=== PATIENT | female | born 1965 | race American Indian/Alaskan Native ===

== ENCOUNTER 2016-09-26 21:45 | Emergency (ER) | payer BC, OTHER ==
[2016-09-26 21:49] VITALS: BP 147/94
[2016-09-26] MEDS ORDERED: LIDOCAINE 2% PO ONE ×3 (22:07)
[2016-09-26] MEDS ORDERED: DIPHENHYDRAMINE PO ONE ×3 (22:07)
[2016-09-26] MEDS ORDERED: NYSTATIN PO ONE ×3 (22:07)
[2016-09-26] MEDS ORDERED: Lidocaine 2% Viscous Solution 15 ML Cup ONE (22:09)
[2016-09-26] MEDS ORDERED: diphenhydrAMINE 12.5 MG/5 ML Liquid 5 ML UD Cup ONE (22:09)
--- NOTE | 2016-09-26 22:13 | EDM.PDOC ---
ED HPI ENT - General Chief Complaint: ENT Problem Stated Complaint: bumps on tounge Time Seen by Provider: 09/26/16 22:02 Source of Information: Reports: Patient History Limitations: Reports: No limitations - History of Present Illness INITIAL COMMENTS - FREE TEXT/NARRATIVE: in with c/o dry irritated mouth with "white patches" x 2-3 days per pt, no fever or chills, no cp or sob, no ear,nose sx, no neck/back pain or stiffness Severity: mild Location: Reports: mouth Quality: Reports: Burning Improves with: Reports: None Worsens with: Reports: None Associated Symptoms: Denies: cough, fever/chills, loss of appetite, nausea/ vomiting, rash 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) Other OB/BYN History: tubal Psychiatric History: Reports: Anxiety - Infectious Disease History Infectious Disease History: Reports: Chicken pox, Measles, Mumps - Past Surgical History HEENT Surgical History: Reports: Oral surgery Other HEENT Surgeries/Procedures: wisdom teeth removal Social & Family History - Family History Cardiac: Reports: CAD, High cholesterol, Hypertension, [place] - Tobacco Use Smoking Status *Q: Current Every Day Smoker Years of Tobacco use: 20 Packs/Tins Daily: 1 Second Hand Smoke Exposure: No - Caffeine Use Caffeine Use: Reports: Soda - Alcohol Use Days Per Week of Alcohol Use: 0 - Recreational Drug Use Recreational Drug Use: No - Living Situation & Occupation Living situation: Reports: with family Occupation: employed ED ROS ENT - Review of Systems Review Of Systems: See Below Constitutional: Reports: no symptoms. Denies: fever, chills HEENT: Denies: Ear pain Respiratory: Reports: no symptoms Cardiovascular: Reports: No symptoms Endocrine: Reports: no symptoms GI/Abdominal: Reports: No symptoms : Reports: no symptoms Musculoskeletal: Reports: no symptoms Skin: Reports: no symptoms. Denies: rash Neurological: Reports: no symptoms Psychiatric: Reports: No symptoms Hematologic/Lymphatic: Reports: no symptoms ED EXAM, ENT - Physical Exam Exam: See Below Exam Limited By: No limitations General Appearance: alert, WD/WN, no apparent distress Ears: normal external exam, normal canal, hearing grossly normal, normal TMs Nose: normal inspection, normal mucousa Mouth/Throat: Normal gums, Normal lips, Other (irritation with yeast). No: Normal inspection Head: atraumatic, normocephalic Neck: normal inspection, supple, non-tender, full range of motion Respiratory/Chest: no respiratory distress, lungs clear, normal breath sounds Cardiovascular: normal peripheral pulses, regular rate, rhythm, no murmur GI/Abdominal: soft, non tender Back: normal inspection, full range of motion Extremities: normal inspection, normal range of motion Neurological: alert, oriented, normal cognition, normal gait, no motor/sensory deficits Psychiatric: normal affect, normal mood Skin: Warm, Dry, Intact, Normal color, No rash Course - Vital Signs Last Recorded V/S: Last Vital Signs Temp 37.0 C 09/26/16 21:45 Pulse 80 09/26/16 21:45 Resp 18 09/26/16 21:45 BP 147/94 H 09/26/16 21:45 Pulse Ox 95 09/26/16 21:45 - Orders/Labs/Meds Orders: Active Orders 24 hr Category Date Time Status Nystatin [Mycostatin] 5 ml Med 09/26/16 22:07 Ordered diphenhydrAMINE [Benadryl] 12.5 mg Lidocaine 2% [Xylocaine 2% Viscous] 5 ml PO ONETIME Medication Orders Nystatin 5 ml/ Diphenhydramine HCl 12.5 mg/ Lidocaine HCl 5 ml 0 ml PO ONETIME ONE Stop: 09/26/16 22:08 Meds: Medications Generic Name Dose Route Start Last Admin Trade Name Freq PRN Reason Stop Dose Admin Nystatin 5 ml/ Diphenhydramine 0 ml 09/26/16 22:07 HCl 12.5 mg/ Lidocaine HCl 5 PO 09/26/16 22:08 ml ONETIME ONE Departure - Departure Time of Disposition: 22:12 Disposition: Home, Self-Care 01 Condition: good Clinical Impression: Stomatitis Instructions: Stomatitis, [id number] Forms: ED Department Discharge Additional Instructions: swish and swallow magic mouth wash 4 x a day for 7 days, do not eat or drink anything x 30 minutes after taking the medication see family doctor this week to ER as needed - Problem List & Annotations (1) Stomatitis SNOMED Code(s): 40794161 Code(s): K12.1 - OTHER FORMS OF STOMATITIS Status: Acute Priority: Medium Current Visit: Yes Onset Date: ~09/26/16 - Problem List Review Problem List Initiated/Reviewed/Updated: Yes - My Orders Last 24 Hours: My Active Orders 09/26/16 22:07 Nystatin [Mycostatin] 5 ml diphenhydrAMINE [Benadryl] 12.5 mg Lidocaine 2% [ Xylocaine 2% Viscous] 5 ml PO ONETIME - Assessment/Plan Last 24 Hours: My Active Orders 09/26/16 22:07 Nystatin [Mycostatin] 5 ml diphenhydrAMINE [Benadryl] 12.5 mg Lidocaine 2% [ Xylocaine 2% Viscous] 5 ml PO ONETIME
[2016-09-26] MEDS ORDERED: Nystatin Susp 100,000 Unit/ML 5 ML UD Cup ONE (22:23)
== END 2016-09-26 22:40 | disposition home or self-care (01) ==
LOC: CC.ED 21:45
DX: K12.1 Other forms of stomatitis (principal); F41.9 Anxiety disorder, unspecified; F17.210 Nicotine dependence, cigarettes, uncomplicated; Z98.890 Other specified postprocedural states
CPT/HCPCS: 99283; A9270

== ENCOUNTER 2017-02-05 23:02 | Emergency (ER) | payer OTHER ==
[2017-02-05 23:08] VITALS: BP 136/88
[2017-02-05] MEDS ORDERED: Tetracaine 0.5% 2 ML Bottle EYELF ONE (23:18)
--- NOTE | 2017-02-05 23:24 | EDM.PDOC ---
ED HPI GENERAL MEDICAL PROBLEM - General Chief Complaint: Eye Problems Stated Complaint: left eye injury Time Seen by Provider: 02/05/17 23:21 Source of Information: Reports: Patient - History of Present Illness INITIAL COMMENTS - FREE TEXT/NARRATIVE: Scratched her eye with a potted plant Onset: Sudden Duration: Minutes: Quality: Reports: Dull, Sharp Severity: Moderate Improves with: Reports: None Worsens with: Reports: None Left Eye Pain Score (Numeric/FACES): 4 - Related Data Allergies Allergy/AdvReac Type Severity Reaction Status Date / Time No Known Allergies Allergy Verified 02/05/17 23:03 Home Meds: Home Meds . 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) Other OB/BYN History: tubal Psychiatric History: Reports: Anxiety - Infectious Disease History Infectious Disease History: Reports: Chicken Pox, Measles, Mumps - Past Surgical History HEENT Surgical History: Reports: Oral Surgery Female Surgical History: Reports: Other (See Below) Social & Family History - Family History Cardiac: Reports: CAD, High Cholesterol, Hypertension, [place] - Tobacco Use Smoking Status *Q: Current Every Day Smoker Years of Tobacco use: 25 Packs/Tins Daily: 0.5 Second Hand Smoke Exposure: No - Caffeine Use Caffeine Use: Reports: Soda - Alcohol Use Days Per Week of Alcohol Use: 0 - Recreational Drug Use Recreational Drug Use: Yes - Living Situation & Occupation Living situation: Reports: with Family Occupation: Employed ED ROS GENERAL - Review of Systems Review Of Systems: ROS reveals no pertinent complaints other than HPI. ED EXAM GENERAL W FULL EYE - Physical Exam Exam: See Below Text/Narrative:: abrasion noted on cornea General Appearance: Alert, WD/WN Cornea Exam: Left: Corneal Abrasion Ears: Normal External Exam Nose: Normal Inspection Throat/Mouth: Normal Inspection Head: Atraumatic Respiratory/Chest: No Respiratory Distress Cardiovascular: Normal Peripheral Pulses Course - Vital Signs Last Recorded V/S: Last Vital Signs Temp 98.1 F 02/05/17 23:04 Pulse 63 02/05/17 23:04 Resp 16 02/05/17 23:04 BP 136/88 02/05/17 23:04 Pulse Ox 95 02/05/17 23:04 Departure - Departure Time of Disposition: 23:27 Disposition: Home, Self-Care 01 Condition: Good Clinical Impression: Corneal abrasion - Discharge Information Referrals: Provider,Unknown [Primary Care Provider] - Forms: ED Department Discharge Additional Instructions: 2 drops to left eye 5 times daily until healed
[2017-02-05] MEDS ORDERED: Dexamethasone/Tobramycin 0.1-0.3% Ophth Susp 2.5 ML Bottle EYELF SCH (23:30)
== END 2017-02-05 23:32 | disposition home or self-care (01) ==
LOC: CC.ED 23:02
DX: S05.02XA Injury of conjunctiva and corneal abrasion without foreign body, left eye, initial encounter (principal); F17.210 Nicotine dependence, cigarettes, uncomplicated; W60.XXXA Contact with nonvenomous plant thorns and spines and sharp leaves, initial encounter
CPT/HCPCS: 99282

== ENCOUNTER 2017-04-23 13:45 | Emergency (ER) | payer OTHER ==
[2017-04-23] MEDS ORDERED: cefTRIAXone 1 GM Vial IM ONE (14:05)
[2017-04-23] MEDS ORDERED: Lidocaine 1% 20 ML MDV INJECT ONE (14:10)
--- NOTE | 2017-04-23 14:10 | EDM.PDOC ---
ED HPI GENERAL MEDICAL PROBLEM - General Chief Complaint: General Stated Complaint: ear pain, drainage, and rash Time Seen by Provider: 04/23/17 13:55 Source of Information: Reports: Patient History Limitations: Reports: No Limitations - History of Present Illness INITIAL COMMENTS - FREE TEXT/NARRATIVE: About three weeks ago patient states was diagnosed with left otitis media and otitis externa and put on ear drops to treat. The next day the rght external ear lobe became inflamed, swollen and painful with yellowish discharge. Patient went back to her provider and was given an injection of rocephin and told to stop the drops. She stated symptoms all resolved until about four days ago when she develop sinus pressure, nasal congestion and drainage. Now complaining of pain in right ear with inflamed rash on right ear lobe draining yellowish clear fluid, frontal headache and swollen lymph nodes on both sides of neck, right more than left. Onset: Gradual Onset Date: 04/19/17 Onset Time: 12:00 Duration: Hour(s):, Getting Worse Location: Reports: Head, Face (right ear) Quality: Reports: Ache, Throbbing Severity: Moderate Improves with: Reports: None Worsens with: Reports: None Associated Symptoms: Reports: Cough (occasional cough). Denies: Chest Pain Bilateral Ear Pain Score (Numeric/FACES): 6 - Related Data Allergies Allergy/AdvReac Type Severity Reaction Status Date / Time No Known Allergies Allergy Verified 04/23/17 13:47 Home Meds: Home Meds . 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) Other OB/BYN History: tubal Psychiatric History: Reports: Anxiety - Infectious Disease History Infectious Disease History: Reports: Chicken Pox, Measles, Mumps - Past Surgical History HEENT Surgical History: Reports: Oral Surgery Female Surgical History: Reports: Other (See Below) Social & Family History - Family History Family Medical History: Noncontributory Cardiac: Reports: CAD, High Cholesterol, Hypertension, [place] - Tobacco Use Smoking Status *Q: Current Every Day Smoker Years of Tobacco use: 25 Packs/Tins Daily: 0.5 Second Hand Smoke Exposure: No - Caffeine Use Caffeine Use: Reports: Soda - Alcohol Use Days Per Week of Alcohol Use: 0 - Recreational Drug Use Recreational Drug Use: Yes - Living Situation & Occupation Living situation: Reports: with Family Occupation: Employed ED ROS GENERAL - Review of Systems Review Of Systems: See Below Constitutional: Denies: Fever, Chills, Diaphoresis HEENT: Reports: Ear Discharge, Ear Pain, Rhinitis, Sinus Problem Respiratory: Reports: No Symptoms Cardiovascular: Reports: No Symptoms Endocrine: Reports: No Symptoms GI/Abdominal: Reports: No Symptoms : Reports: No Symptoms Musculoskeletal: Reports: No Symptoms Skin: Reports: No Symptoms Neurological: Reports: No Symptoms Psychiatric: Reports: No Symptoms Hematologic/Lymphatic: Reports: No Symptoms Immunologic: Reports: No Symptoms ED EXAM, GENERAL - Physical Exam Exam: See Below Exam Limited By: No Limitations General Appearance: Alert, WD/WN, No Apparent Distress Eye Exam: Bilateral Eye: EOMI, PERRL Ears: Hearing Grossly Normal Ear Exam: Right Ear: Discharge, Erythema, Swelling, Tenderness, TM Dull, Other ( Right TM obscured by purulent cheesy apearing discharge in the ear canal, right ear lobe red, inflamed and swollen with dry yellowish to clear discharge and excoriations. No pussy discharge. noted. Mild tender deep anterior and postauricular LAD noted right and to a lesse degree the left. Rght auricle vert tender with palpation. ), Left Ear: Auricle Normal, Canal Normal, TM normal Nose: Nasal Swelling, Nasal Drainage, Clear Rhinorrhea (nasal mucous membranes red boggy and swollen with clear rhinorrhea, tender with palpation over maxiallary and frontal sinuses) Throat/Mouth: Normal Inspection, Normal Lips, Normal Teeth, Normal Gums, Normal Oropharynx, Normal Voice, No Airway Compromise Head: Atraumatic, Normocephalic Neck: Normal Inspection, Supple (mild tender LAD as noted above) Respiratory/Chest: No Respiratory Distress, Lungs Clear, Normal Breath Sounds, No Accessory Muscle Use, Chest Non-Tender Cardiovascular: Normal Peripheral Pulses, Regular Rate, Rhythm, No Edema, No Gallop, No JVD, No Murmur, No Rub Peripheral Pulses: 3+: Radial (L), Radial (R) GI/Abdominal: Normal Bowel Sounds, Soft, Non-Tender (Female) Exam: Deferred Rectal (Female) Exam: Deferred Back Exam: Normal Inspection Extremities: Normal Inspection, Normal Range of Motion, No Pedal Edema Neurological: Oriented, CN II-XII Intact, Normal Cognition, Normal Gait Psychiatric: Normal Affect, Normal Mood Skin Exam: Warm, Dry, Intact, Normal Color, No Rash Course - Vital Signs Last Recorded V/S: Last Vital Signs Temp 37.2 C 04/23/17 13:49 Pulse 61 04/23/17 13:49 Resp 16 04/23/17 13:49 BP 141/102 H 04/23/17 13:49 Pulse Ox 95 04/23/17 13:49 - Re-Assessments/Exams Free Text/Narrative Re-Assessment/Exam: 04/23/17 14:23 Patient evaluated and diagnosed with sinusitis and recurrent ROM and right otitis externa. She will be given a shot of rocephin and a prescription for oral ceftin to fill tomorrow. No salve or ointment will be used on the left external ear as the last ointment seemed to make it worse. She was advised it may be recurrent due to incomplete prior treatment as she only had one dose of rocephin and no oral antibiotics. It sounds like it improved but its possible it may not have resolved. I advised her to follow up with her regular doctor this week for further evaluation and treatment. The appearance of right right TM raised the question if there may be a choleastoma involved. She may need an ENT referral if this does not clear. Patient was advised of the possible differential diagnosis and voiced understanding. Departure - Departure Time of Disposition: 14:29 Disposition: Home, Self-Care 01 Condition: Good Clinical Impression: Otitis media Qualifiers: Otitis media type: suppurative Chronicity: acute Laterality: right Recurrence: recurrent Spontaneous tympanic membrane rupture: without spontaneous rupture Qualified Code(s): H66.004 - Acute suppurative otitis media without spontaneous rupture of ear drum, recurrent, right ear Otitis externa of right ear Qualifiers: Otitis externa type: unspecified type Chronicity: acute Qualified Code(s): H60.501 - Unspecified acute noninfective otitis externa, right ear Sinusitis, acute Qualifiers: Sinusitis location: pansinusitis Recurrence: not specified as recurrent Qualified Code(s): J01.40 - Acute pansinusitis, unspecified - Discharge Information Instructions: Otitis Media, Adult, [id number], Otitis Externa Additional Instructions: Fill your antibiotic prescription tomorrow and take as directed. This will cover for ear infection and sinusitis. Either eat yogurt once daily or take a probiotic supplement to help prevent antibiotic related diarrhea. Follow up with your regular doctor this week to make sure it is healing. You may need a referral to ENT if this problem persists or does not resolve
[2017-04-23 14:23] VITALS: BP 129/85
== END 2017-04-23 14:42 | disposition home or self-care (01) ==
LOC: CC.ED 13:45
DX: H66.004 Acute suppurative otitis media without spontaneous rupture of ear drum, recurrent, right ear (principal); H60.501 Unspecified acute noninfective otitis externa, right ear; J01.40 Acute pansinusitis, unspecified; F41.9 Anxiety disorder, unspecified; F17.210 Nicotine dependence, cigarettes, uncomplicated
CPT/HCPCS: 96372; 99282; J0696

== ENCOUNTER 2018-05-06 00:38 | Emergency (ER) | payer OTHER ==
--- NOTE | 2018-05-06 01:23 | EDM.PDOC ---
ED HPI GENERAL MEDICAL PROBLEM - General Chief Complaint: General Stated Complaint: ANXIETY/HEAVINESS IN CHEST Time Seen by Provider: 05/06/18 01:00 Source of Information: Reports: Patient History Limitations: Reports: No Limitations - History of Present Illness INITIAL COMMENTS - FREE TEXT/NARRATIVE: Patient presents to ER with complaints of chest heaviness that radiated to her right shoulder. States started noting this several hours ago while watching TV. Admits to mild shortness of breath with this but notes did get more anxious because of this and seemed to make it worse. Initially, discomfort was at an 8, now a 4. No nausea or diaphoresis. Had discomfort like this several years ago, had complete cardiac work up and stress test which were all negative. Questioned also if it could have been reflux but denies a burning sensation or known reflux in the past. When lying down for the night, seemed to continue and "then got more panicky about it". Onset: Today, Gradual Duration: Hour(s):, Improving Location: Reports: Chest Quality: Reports: Pressure Severity: Moderate Associated Symptoms: Reports: Chest Pain, Shortness of Breath. Denies: Diaphoresis, Fever/Chills, Loss of Appetite, Nausea/Vomiting, Syncope, Weakness Generalized Pain Score (Numeric/FACES): 4 - Related Data Allergies Allergy/AdvReac Type Severity Reaction Status Date / Time No Known Allergies Allergy Verified 05/06/18 00:40 Home Meds: Home Meds . 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 Psychiatric History: Reports: Anxiety - Infectious Disease History Infectious Disease History: Reports: Chicken Pox, Measles, Mumps - Past Surgical History HEENT Surgical History: Reports: Oral Surgery Female Surgical History: Reports: Other (See Below) Social & Family History - Family History Family Medical History: Noncontributory Cardiac: Reports: CAD, High Cholesterol, Hypertension, [place] - Tobacco Use Smoking Status *Q: Never Smoker - Caffeine Use Caffeine Use: Reports: Soda - Living Situation & Occupation Living situation: Reports: with Family Occupation: Employed ED ROS GENERAL - Review of Systems Review Of Systems: See Below Constitutional: Denies: Fever, Chills, Malaise, Weakness, Decreased Appetite HEENT: Denies: Ear Pain, Rhinitis, Sinus Problem, Throat Pain Respiratory: Reports: Shortness of Breath. Denies: Cough Cardiovascular: Reports: Chest Pain. Denies: Edema, Lightheadedness Endocrine: Denies: Fatigue GI/Abdominal: Denies: Abdominal Pain, Nausea, Vomiting : Reports: No Symptoms Musculoskeletal: Reports: No Symptoms Skin: Reports: No Symptoms Neurological: Reports: No Symptoms ED EXAM, GENERAL - Physical Exam Exam: See Below Exam Limited By: No Limitations General Appearance: Alert, WD/WN, No Apparent Distress Ears: Normal External Exam, Normal TMs Nose: Normal Inspection, Normal Mucosa, No Blood Throat/Mouth: Normal Inspection, Normal Oropharynx Head: Normocephalic Neck: Normal Inspection, Supple, Non-Tender Respiratory/Chest: No Respiratory Distress, Lungs Clear, Normal Breath Sounds Cardiovascular: Regular Rate, Rhythm GI/Abdominal: Normal Bowel Sounds, Soft, Non-Tender Extremities: Normal Inspection. No: Pedal Edema Neurological: Alert, Oriented Skin Exam: Warm, Dry EKG INTERPRETATION Rhythm: NSR Course - Vital Signs Last Recorded V/S: Last Vital Signs Temp 98.3 F 05/06/18 00:51 Pulse 64 05/06/18 00:51 Resp 18 05/06/18 00:51 BP 146/80 H 05/06/18 00:51 Pulse Ox 98 05/06/18 00:51 - Orders/Labs/Meds Orders: Active Orders 24 hr Category Date Time Status Chest 2V [CR] Routine Exams 05/06/18 01:06 Taken Labs: Laboratory Tests 05/06/18 05/06/18 Range/Units 01:10 01:10 WBC 8.0 (5.0-10.0) 10^3/uL RBC 4.35 (4.00-5.50) 10^6/uL Hgb 13.2 (12.0-16.0) g/dL Hct 39.8 (37.0-47.0) % MCV 91.5 (82.0-94.0) fL MCH 30.3 (27.0-32.0) pg MCHC 33.2 (33.0-38.0) g/dL RDW Coeff of Farideh 13.5 (11.0-15.0) % Plt Count 234 (150-400) 10^3/uL Neut % (Auto) 52.7 (35-85) % Lymph % (Auto) 35.7 (10-55) % [place] % (Auto) 8.2 (0-16) % Eos % (Auto) 3.0 (0-5) % Baso % (Auto) 0.4 (0-3) % Neut # (Auto) 4.20 (1.80-7.00) 10^3/uL Lymph # (Auto) 2.84 (1.00-4.80) 10^3/uL [place] # (Auto) 0.65 (0.00-0.80) 10^3/uL Eos # (Auto) 0.24 (0.00-0.45) 10^3/uL Baso # (Auto) 0.03 10^3/uL Sodium 139 (136-145) mEq/L Potassium 3.5 (3.5-5.0) mEq/L Chloride 106 (98-106) mEq/L Carbon Dioxide 26 (21-32) mmol/L BUN 12 (7-18) mg/dL Creatinine 0.8 (0.6-1.0) mg/dL Est Cr Clr Drug Dosing 70.88 mL/min Estimated GFR (MDRD) > 60 (>=60) mL/min Glucose 98 (75-99) mg/dL Calcium 8.7 (8.4-10.1) mg/dL Lactate Dehydrogenase 150 (100-190) U/L Creatine Kinase 78 (21-215) U/L Troponin I < 0.017 (0.00-0.06) ng/mL Amylase 35 (25-115) U/L - Re-Assessments/Exams Free Text/Narrative Re-Assessment/Exam: 05/06/18 01:37 Lab tests are all negative. Chest xray is clear. Departure - Departure Time of Disposition: 01:37 Disposition: Home, Self-Care 01 Condition: Good Clinical Impression: Atypical chest pain - Discharge Information *PRESCRIPTION DRUG MONITORING PROGRAM REVIEWED*: Not Applicable *COPY OF PRESCRIPTION DRUG MONITORING REPORT IN PATIENT YAMILET: Not Applicable Forms: ED Department Discharge Additional Instructions: 1. Rest 2. Push fluids 3. Antacids as needed 4. Follow up if continue to have chest discomfort as may need further cardiac work up if persists. 5. Call with any questions - My Orders Last 24 Hours: My Active Orders 05/06/18 01:06 Chest 2V [CR] Routine - Assessment/Plan Last 24 Hours: My Active Orders 05/06/18 01:06 Chest 2V [CR] Routine
[2018-05-06 01:33] LABS: CHLORIDE,CL 106 mEq/L (98-106); SODIUM,NA 139 mEq/L (136-145)
[2018-05-06 02:33] VITALS: BP 120/76
== END 2018-05-06 01:48 | disposition home or self-care (01) ==
LOC: CC.ED 00:38
DX: R07.89 Other chest pain (principal)
CPT/HCPCS: 36415; 71046; 80048; 82150; 82550; 83615; 84484; 85025; 93005; 99285

== ENCOUNTER 2019-06-03 01:08 | Emergency (ER) | payer BC, OTHER ==
[2019-06-03 01:11] VITALS: BP 145/84; PULSE 70
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
== END 2019-06-03 01:49 | disposition home or self-care (01) ==
LOC: CC.ED 01:08
DX: L50.9 Urticaria, unspecified (principal); F17.210 Nicotine dependence, cigarettes, uncomplicated
CPT/HCPCS: 99283

== ENCOUNTER 2019-07-24 22:45 | Emergency (ER) | payer BC, OTHER ==
[2019-07-24 23:27] LABS: CHLORIDE,CL 109 mEq/L (98-106); SODIUM,NA 146 mEq/L (136-145)
[2019-07-24] MEDS ORDERED: Iopamidol 755 Mg/ML 100 ML Bottle IVPUSH ONE (23:33)
[2019-07-25 00:09] VITALS: BP 142/67; PULSE 64
--- NOTE | 2019-07-25 01:50 | EDM.PDOC ---
ED HPI GENERAL MEDICAL PROBLEM - General Chief Complaint: Chest Pain Stated Complaint: chest pain Time Seen by Provider: 07/24/19 23:00 Source of Information: Reports: Patient History Limitations: Reports: No Limitations - History of Present Illness INITIAL COMMENTS - FREE TEXT/NARRATIVE: Carmelita is a 53 yr old female who presents to the ED via [facility] with complaints of chest pain that radiates to her left shoulder. She states she was cleaning tonight and moving boxes when symtpoms started a few hours ago. States she did go try and lie down to see if she got any relief and felt it made it worse. She admit when she sat back up it was a little better, but then her anxiety kicked in and she became SOB and felt she was having a full anxiety attack. EMS admit she was anxious and her blood pressure was elevated en route. Prior to arrival she calmed down and on arrival blood pressure came down. She admits to chronic tobacco use. States she does have family history of cardiac disease. States she has had a cardiolite before, which was normal. She admits her pain has mostly subsided now. Denies any shortness of breath. States she has been feeling well otherwise. No recent cold symptoms. Does state she does think she gets indigestion from time to time though. - Related Data Allergies Allergy/AdvReac Type Severity Reaction Status Date / Time No Known Allergies Allergy Verified 07/24/19 22:52 Home Meds: Home Meds . 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 Musculoskeletal History: Reports: None Neurological History: Reports: None Psychiatric History: Reports: Anxiety Endocrine/Metabolic History: Reports: None Hematologic History: Reports: None Immunologic History: Reports: None Oncologic (Cancer) History: Reports: None Dermatologic History: Reports: None - Infectious Disease History Infectious Disease History: Reports: Chicken Pox, Measles, Mumps - Past Surgical History Head Surgeries/Procedures: Reports: None HEENT Surgical History: Reports: Oral Surgery Female Surgical History: Reports: Other (See Below) Social & Family History - Family History Family Medical History: Noncontributory Cardiac: Reports: CAD, High Cholesterol, Hypertension, [place] - Tobacco Use Smoking Status *Q: Current Every Day Smoker Years of Tobacco use: 40 Packs/Tins Daily: 0.5 - Caffeine Use Caffeine Use: Reports: None - Living Situation & Occupation Living situation: Reports: with Family Occupation: Employed ED ROS GENERAL - Review of Systems Review Of Systems: See Below Constitutional: Denies: Fever, Chills, Weakness, Decreased Appetite HEENT: Reports: No Symptoms Respiratory: Denies: Shortness of Breath, Wheezing, Cough Cardiovascular: Reports: Chest Pain. Denies: Blood Pressure Problem, Dyspnea on Exertion, Lightheadedness, Palpitations GI/Abdominal: Reports: No Symptoms : Reports: No Symptoms Musculoskeletal: Reports: No Symptoms Skin: Reports: No Symptoms Neurological: Reports: No Symptoms Psychiatric: Reports: Anxiety ED EXAM, GENERAL - Physical Exam Exam: See Below Exam Limited By: No Limitations General Appearance: Alert, WD/WN, No Apparent Distress Eye Exam: Bilateral Eye: Normal Inspection Ears: Normal External Exam, Normal Canal, Hearing Grossly Normal, Normal TMs Nose: Normal Inspection, Normal Mucosa, No Blood Throat/Mouth: Normal Inspection, Normal Lips, Normal Teeth, Normal Gums, Normal Oropharynx, Normal Voice, No Airway Compromise Head: Atraumatic, Normocephalic Neck: Normal Inspection, Supple, Non-Tender, Full Range of Motion Respiratory/Chest: No Respiratory Distress, Lungs Clear, Normal Breath Sounds, No Accessory Muscle Use Cardiovascular: Normal Peripheral Pulses, Regular Rate, Rhythm, No Edema, No Murmur GI/Abdominal: Normal Bowel Sounds, Soft, No Organomegaly, No Distention, Tender (mild epigastric tenderness) Extremities: Normal Inspection, No Pedal Edema Neurological: Alert, Oriented, Normal Cognition, No Motor/Sensory Deficits Psychiatric: Normal Affect, Normal Mood Skin Exam: Warm, Dry, Intact, Normal Color, No Rash EKG INTERPRETATION EKG Date: 07/24/19 Rhythm: NSR Rate (Beats/Min): 59 Course - Vital Signs Last Recorded V/S: Last Vital Signs Temp 98.8 F 07/24/19 22:52 Pulse 64 07/25/19 00:08 Resp 18 07/24/19 22:52 BP 142/67 H 07/25/19 00:08 Pulse Ox 98 07/24/19 22:52 - Orders/Labs/Meds Orders: Active Orders 24 hr Category Date Time Status Chest 2V [CR] Stat Exams 07/24/19 22:47 Taken Labs: Laboratory Tests 07/24/19 07/24/19 07/24/19 Range/Units 23:00 23:00 23:00 WBC 8.5 (5.0-10.0) 10^3/uL RBC 4.34 (4.00-5.50) 10^6/uL Hgb 13.2 (12.0-16.0) g/dL Hct 40.2 (37.0-47.0) % MCV 92.6 (82.0-94.0) fL MCH 30.4 (27.0-32.0) pg MCHC 32.8 L (33.0-38.0) g/dL RDW Coeff of Farideh 13.6 (11.0-15.0) % Plt Count 192 (150-400) 10^3/uL Neut % (Auto) 58.1 (35-85) % Lymph % (Auto) 26.6 (10-55) % [place] % (Auto) 9.1 (0-16) % Eos % (Auto) 5.8 H (0-5) % Baso % (Auto) 0.4 (0-3) % Neut # (Auto) 4.92 (1.80-7.00) 10^3/uL Lymph # (Auto) 2.25 (1.00-4.80) 10^3/uL [place] # (Auto) 0.77 (0.00-0.80) 10^3/uL Eos # (Auto) 0.49 H (0.00-0.45) 10^3/uL Baso # (Auto) 0.03 10^3/uL PT 9.7 (9.7-12.3) SEC INR 0.94 (0.92-1.18) APTT 27.1 (23.2-32.3) SEC D-Dimer, Quantitative 0.73 H (0.00-0.50) Sodium 146 H (136-145) mEq/L Potassium 3.7 (3.5-5.0) mEq/L Chloride 109 H (98-106) mEq/L Carbon Dioxide 25 (21-32) mmol/L BUN 11 (7-18) mg/dL Creatinine 0.8 (0.6-1.0) mg/dL Est Cr Clr Drug Dosing 71.50 mL/min Estimated GFR (MDRD) > 60 (>=60) mL/min Glucose 99 (75-99) mg/dL Calcium 8.9 (8.4-10.1) mg/dL Total Bilirubin 0.2 (0.0-1.0) mg/dL AST 12 L (15-37) U/L ALT 21 (12-78) U/L Alkaline Phosphatase 75 (46-116) U/L Lactate Dehydrogenase 176 (100-190) U/L Creatine Kinase 76 (21-215) U/L Troponin I < 0.017 (0.00-0.06) ng/mL Total Protein 6.6 (6.4-8.2) g/dL Albumin 3.4 (3.4-5.0) g/dL Lipase 121 (73-393) U/L Meds: Medications Discontinued Medications Generic Name Dose Route Start Last Admin Trade Name Freq PRN Reason Stop Dose Admin Iopamidol 100 ml 07/24/19 23:33 Isovue-370 (76%) IVPUSH 07/24/19 23:34 ONETIME ONE Departure - Departure Time of Disposition: 00:55 Disposition: Home, Self-Care 01 Clinical Impression: Elevated d-dimer, Nonspecific chest pain Instructions: Nonspecific Chest Pain, [id number], D-Dimer Test Referrals: PCP,None [Primary Care Provider] - Forms: ED Department Discharge Additional Instructions: 1) discussed elevated d-dimer and further work up to rule out PE. With declining test, advise closely watching for any signs of shortness of breath, worsening chest pain. If any symptoms worsen, return or any new onset of symptoms... please return to emergency department 2) May try TUMS, Zantac or Prilosec as well if possible indigestion. 3) If any concerns or questions, may call [phone] as well. Sepsis Event Note - Evaluation Sepsis Screening Result: No Definite Risk - Focused Exam Vital Signs: Vital Signs Temp Pulse Resp BP Pulse Ox 07/25/19 00:08 64 142/67 H 07/24/19 22:52 98.8 F 62 18 149/68 H 98 Date Exam was Performed: 07/25/19 Time Exam was Performed: 01:44 - Problem List & Annotations (1) Nonspecific chest pain SNOMED Code(s): 92679984 Code(s): R07.9 - CHEST PAIN, UNSPECIFIED Status: Acute (2) Elevated d-dimer SNOMED Code(s): 687920745 Code(s): R79.89 - OTHER SPECIFIED ABNORMAL FINDINGS OF BLOOD CHEMISTRY Status: Acute - My Orders Last 24 Hours: My Active Orders 07/24/19 22:47 Chest 2V [CR] Stat - Assessment/Plan Last 24 Hours: My Active Orders 07/24/19 22:47 Chest 2V [CR] Stat Plan: Cardiac enzymes were negative. D-dimer slightly elevated. Patient declined IV with CTA of the chest. I did discuss into detail d-dimer testing and with being elevated ruling out PE. I did discuss the risks involved with PE's to include , which she voiced understanding of and declines further testing. She felt comfortable with normal cardiac enzymes and feels it may have been indigestion. With having some midsternal discomfort she felt it caused her anxiety to increase as well. Patient wished to be discharged and left ambulatory in satisfactory condition. Chest pain significantly improved during her time in the ED.
== END 2019-07-25 00:55 | disposition home or self-care (01) ==
LOC: CC.ED 22:45
DX: R07.9 Chest pain, unspecified (principal); R79.1 Abnormal coagulation profile; F17.210 Nicotine dependence, cigarettes, uncomplicated; I25.10 Atherosclerotic heart disease of native coronary artery without angina pectoris; I10 Essential (primary) hypertension; I25.2 Old myocardial infarction
CPT/HCPCS: 36415; 71046; 80053; 82550; 83615; 83690; 84484; 85025; 85379; 85610; 85730; 93005; 99285-25

== ENCOUNTER 2019-08-25 15:52 | Emergency (ER) | payer BC, OTHER ==
[2019-08-25] MEDS ORDERED: Codeine/Promethazine 10-6.25 MG/5 ML Syrup 5 ML UD Cup PO ONE (15:53)
[2019-08-25 15:55] VITALS: BP 109/75; PULSE 60
[2019-08-25] MEDS ORDERED: Azithromycin 250 MG Tab PO ONE (16:07)
[2019-08-25] MEDS ORDERED: Take Home: Codeine/Promethazine 10-6.25 MG/5 ML Syrup 5 ML, 2 Cup Pack PO ONE (16:09)
--- NOTE | 2019-08-25 16:15 | EDM.PDOC ---
ED HPI GENERAL MEDICAL PROBLEM - General Chief Complaint: Respiratory Problem Stated Complaint: cough Time Seen by Provider: 08/25/19 16:00 Source of Information: Reports: Patient, Family History Limitations: Reports: No Limitations - History of Present Illness INITIAL COMMENTS - FREE TEXT/NARRATIVE: Patient to the emergency department with family complaint of increased cough and congestion with a runny nose and sore ribs for the past couple weeks. The patient also advises she has had a fever and chills off and on she has had a runny nose she denies any ear pain denies any throat pain denies any cardiac chest pain denies any shortness of breath denies any abdominal pain no nausea vomiting no diarrhea no constipation no rash Onset: Gradual Duration: Week(s): (About 2 weeks) Location: Reports: Chest Quality: Reports: Ache Severity: Moderate Improves with: Reports: None Worsens with: Reports: None Associated Symptoms: Reports: Cough, cough w sputum, Fever/Chills. 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 Abdomen Pain Score (Numeric/FACES): 4 - Related Data Allergies Allergy/AdvReac Type Severity Reaction Status Date / Time No Known Allergies Allergy Verified 08/25/19 15:55 Home Meds: Home Meds Azithromycin 500 mg PO DAILY 2 Days #2 tablet 08/25/19 [Rx] Promethazine/Dextromethorphan [Promethazine-Dm Solution] 10 ml PO Q6HR PRN 5 Days #120 syrup 08/25/19 [Rx] predniSONE 40 mg PO DAILY@1200 #1 tablet 08/25/19 [Rx] predniSONE [Prednisone] 50 mg PO DAILY 4 Days #4 tablet 08/25/19 [Rx] Past Medical History HEENT History: Reports: None Cardiovascular History: Reports: None Respiratory History: Reports: None Gastrointestinal History: Reports: GERD Genitourinary History: Reports: None 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 DRIVER History: Reports: 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, Other (See Below) 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 Musculoskeletal History: Reports: None Neurological History: Reports: None Psychiatric History: Reports: Anxiety Endocrine/Metabolic History: Reports: None Hematologic History: Reports: None Immunologic History: Reports: None Oncologic (Cancer) History: Reports: None Dermatologic History: Reports: None - Infectious Disease History Infectious Disease History: Reports: Chicken Pox, Measles, Mumps - Past Surgical History Head Surgeries/Procedures: Reports: None HEENT Surgical History: Reports: Oral Surgery Female Surgical History: Reports: Other (See Below) Social & Family History - Family History Family Medical History: Noncontributory Cardiac: Reports: CAD, High Cholesterol, Hypertension, [place] - Tobacco Use Smoking Status *Q: Current Every Day Smoker Years of Tobacco use: 35 Packs/Tins Daily: 0.5 Used Tobacco, but Quit: No - Caffeine Use Caffeine Use: Reports: Soda - Living Situation & Occupation Living situation: Reports: with Family Occupation: Employed ED ROS GENERAL - Review of Systems Review Of Systems: See Below Constitutional: Reports: Fever, Chills HEENT: Reports: No Symptoms, Rhinitis. Denies: Ear Pain Respiratory: Reports: Pleuritic Chest Pain, Cough, Sputum. Denies: Shortness of Breath, Hemoptysis Cardiovascular: Reports: No Symptoms. Denies: Chest Pain Endocrine: Reports: No Symptoms GI/Abdominal: Reports: No Symptoms. Denies: Abdominal Pain, Nausea, Vomiting : Reports: No Symptoms Musculoskeletal: Reports: No Symptoms. Denies: Neck Pain, Back Pain Skin: Reports: No Symptoms. Denies: Bruising, Rash, Erythema Neurological: Reports: No Symptoms Psychiatric: Reports: No Symptoms ED EXAM, GENERAL - Physical Exam Exam: See Below Exam Limited By: No Limitations General Appearance: Alert, WD/WN, No Apparent Distress Ears: Normal External Exam, Normal Canal, Hearing Grossly Normal, Normal TMs Nose: Nasal Drainage (Purulent drainage with injected nares) Throat/Mouth: Normal Inspection, Normal Lips, Normal Teeth, Normal Oropharynx, Normal Voice, No Airway Compromise Head: Atraumatic, Normocephalic Neck: Normal Inspection, Supple, Non-Tender, Full Range of Motion Respiratory/Chest: No Respiratory Distress, Normal Breath Sounds, Chest Non- Tender, Wheezing (Scattered expiratory wheezing in the bases, the patient is a chronic smoker). No: Lungs Clear Cardiovascular: Normal Peripheral Pulses, Regular Rate, Rhythm, No Murmur Peripheral Pulses: 2+: Radial (L) GI/Abdominal: Soft, Non-Tender Back Exam: Normal Inspection, Full Range of Motion Extremities: Normal Inspection, Normal Range of Motion, Non-Tender, No Pedal Edema, Normal Capillary Refill. No: Jovan's Sign Neurological: Alert, Oriented, Normal Cognition, Normal Gait, No Motor/Sensory Deficits Psychiatric: Normal Affect, Normal Mood Skin Exam: Warm, Dry, Intact, Normal Color, No Rash Course - Vital Signs Text/Narrative:: The patient was evaluated in the emergency department I suspect that the patient has a bronchitis and as this is been going on for an extended period of time I suspect there is a bacterial component, therefore the patient will be started on Zithromax 500 mg once a day for 3 days she will also be given prednisone 50 mg once a day for 5 days and promethazine DM cough syrup 2 teaspoons every 6 hours as needed for cough she is advised to increase her fluids follow-up with family doctor this week and return to emergency department sooner if worsening problems Last Recorded V/S: Last Vital Signs Temp 37.0 C 08/25/19 15:52 Pulse 60 08/25/19 15:52 Resp 18 08/25/19 15:52 BP 109/75 08/25/19 15:52 Pulse Ox 97 08/25/19 15:52 - Orders/Labs/Meds Orders: Active Orders 24 hr Category Date Time Status predniSONE Med 08/25/19 16:30 Active 40 mg PO STAT Medication Orders Prednisone (Prednisone) 40 mg PO STAT JOSHUA Last Admin: 08/25/19 16:29 Dose: 40 mg Meds: Medications Generic Name Dose Route Start Last Admin Trade Name Freq PRN Reason Stop Dose Admin Prednisone 40 mg 08/25/19 16:30 08/25/19 16:29 Prednisone PO 40 mg STAT JOSHUA Administration Discontinued Medications Generic Name Dose Route Start Last Admin Trade Name Freq PRN Reason Stop Dose Admin Azithromycin 500 mg 08/25/19 16:07 08/25/19 16:25 Zithromax PO 08/25/19 16:08 500 mg ONETIME ONE Administration Prednisone 40 mg 08/26/19 12:00 Prednisone PO DAILY@1200 JOSHUA Promethazine HCl/Codeine 1 packet 08/25/19 16:09 08/25/19 16:25 Take Home: Codeine/Prometh 10-6.25 Mg, 2 Pack PO 08/25/19 16:10 1 packet ONETIME ONE Administration Departure - Departure Time of Disposition: 16:09 Disposition: Home, Self-Care 01 Condition: Good Clinical Impression: Bronchitis - Discharge Information *PRESCRIPTION DRUG MONITORING PROGRAM REVIEWED*: Not Applicable *COPY OF PRESCRIPTION DRUG MONITORING REPORT IN PATIENT YAMILET: Not Applicable Prescriptions: Promethazine/Dextromethorphan [Promethazine-Dm Solution] 10 ml PO Q6HR PRN 5 Days #120 syrup PRN Reason: Cough Azithromycin 500 mg PO DAILY 2 Days #2 tablet predniSONE 40 mg PO DAILY@1200 #1 tablet predniSONE [Prednisone] 50 mg PO DAILY 4 Days #4 tablet Instructions: Acute Bronchitis, Adult, [id number] Referrals: PCP,None [Primary Care Provider] - Forms: ED Department Discharge Additional Instructions: Rest Increase fluids Zithromax once a day for 3 days Prednisone 50 mg once a day for 4 days Promethazine DM cough syrup 2 teaspoons every 6 hours as needed for cough Follow-up with the family doctor this coming week, call tomorrow for an appointment time Return to the emergency department sooner if worsening problems Sepsis Event Note - Evaluation Sepsis Screening Result: No Definite Risk - Focused Exam Vital Signs: Vital Signs Temp Pulse Resp BP Pulse Ox 08/25/19 15:52 37.0 C 60 18 109/75 97 Date Exam was Performed: 08/25/19 Time Exam was Performed: 16:36 - Problem List & Annotations (1) Bronchitis SNOMED Code(s): 12745694 Code(s): J40 - BRONCHITIS, NOT SPECIFIED ACUTE OR CHRONIC Status: Acute Priority: Medium Current Visit: Yes - Problem List Review Problem List Initiated/Reviewed/Updated: Yes - My Orders Last 24 Hours: My Active Orders 08/25/19 16:30 predniSONE 40 mg PO STAT - Assessment/Plan Last 24 Hours: My Active Orders 08/25/19 16:30 predniSONE 40 mg PO STAT Plan: as above
[2019-08-25] MEDS ORDERED: predniSONE 20 MG Tab PO SCH (16:30)
[2019-08-26] MEDS ORDERED: predniSONE 20 MG Tab PO SCH (12:00)
== END 2019-08-25 16:50 | disposition home or self-care (01) ==
LOC: CC.ED 15:52
DX: J40 Bronchitis, not specified as acute or chronic (principal); F17.210 Nicotine dependence, cigarettes, uncomplicated
CPT/HCPCS: 99283; A9270

== ENCOUNTER 2020-02-28 14:35 | Emergency (ER) | payer BC, OTHER ==
[2020-02-28 14:45] VITALS: BP 132/82; PULSE 97
--- NOTE | 2020-02-28 15:25 | EDM.PDOC ---
ED HPI GENERAL MEDICAL PROBLEM - General Chief Complaint: General Stated Complaint: cough,SOB,CP,bodyaches Time Seen by Provider: 02/28/20 15:12 Source of Information: Reports: Patient History Limitations: Reports: No Limitations - History of Present Illness INITIAL COMMENTS - FREE TEXT/NARRATIVE: This patient is a 54 year old female that presents to the ER. Patient arrives via EMS. Patient reports that last weekend she was exposed to someone who tested positive for COVID. Patient reports that on Monday, 3 days ago she began having headache, congestion, drainage, productive cough, chest congestion. She reports then today she began with fever. She reports that she went to [place] this morning and got a COVID test. Patient reports she did not get results and wont get back today. Patient reports she went home and got anxious and a little more short of breath thinking about having COVID. She reports she called an ambulance due to this reason. The patient reports she stopped smoking about 6 months ago. Onset Date: 02/25/20 Duration: Day(s): (3) Severity: Mild Improves with: Reports: None Worsens with: Reports: None Associated Symptoms: Reports: Cough, cough w sputum, Fever/Chills, Headaches, Shortness of Breath. Denies: Confusion, Chest Pain, Diaphoresis, Loss of Appetite, Malaise, Nausea/Vomiting, Rash, Seizure, Syncope, Weakness Chest Pain Score (Numeric/FACES): 7 - Related Data Allergies Allergy/AdvReac Type Severity Reaction Status Date / Time No Known Allergies Allergy Verified 02/28/20 14:45 Home Meds: Home Meds Albuterol [Proair HFA] 1 puff IH Q4H PRN #1 inhaler 02/28/20 [Rx] Albuterol/Ipratropium [DuoNeb 3.0-0.5 MG/3 ML] 3 ml .XX Q6HR PRN #60 neb 02/28/20 [Rx] Cefdinir 300 mg PO BID 10 Days #20 capsule 02/28/20 [Rx] methylPREDNISolone [Medrol Dose Pack] 4 mg PO ASDIRECTED 5 Days #1 dospk 02/28/20 [Rx] Past Medical History HEENT History: Reports: None Cardiovascular History: Reports: None Respiratory History: Reports: None Gastrointestinal History: Reports: GERD Genitourinary History: Reports: None SR. DIRECTOR PRODUCT MANAGEMENT History: Reports: None, Other (See Below) Other SR. DIRECTOR PRODUCT MANAGEMENT History: tubal Musculoskeletal History: Reports: None Neurological History: Reports: None Psychiatric History: Reports: Anxiety Endocrine/Metabolic History: Reports: None Hematologic History: Reports: None Immunologic History: Reports: None Oncologic (Cancer) History: Reports: None Dermatologic History: Reports: None - Infectious Disease History Infectious Disease History: Reports: None - Past Surgical History Head Surgeries/Procedures: Reports: None HEENT Surgical History: Reports: Oral Surgery Female Surgical History: Reports: Other (See Below) Social & Family History - Family History Family Medical History: Noncontributory Cardiac: Reports: CAD, High Cholesterol, Hypertension, [place] - Tobacco Use Smoking Status *Q: Former Smoker Used Tobacco, but Quit: Yes Month/Year Tobacco Last Used: 5 months ago - Caffeine Use Caffeine Use: Reports: Soda - Recreational Drug Use Recreational Drug Use: No - Living Situation & Occupation Living situation: Reports: with Family Occupation: Employed ED ROS GENERAL - Review of Systems Review Of Systems: See Below Constitutional: Reports: Fever, Chills, Malaise HEENT: Reports: Rhinitis, Sinus Problem Respiratory: Reports: Shortness of Breath, Wheezing, Pleuritic Chest Pain, Cough, Sputum Cardiovascular: Reports: No Symptoms Endocrine: Reports: No Symptoms GI/Abdominal: Reports: No Symptoms. Denies: Abdominal Pain, Diarrhea, Nausea, Vomiting : Reports: No Symptoms Musculoskeletal: Reports: Other (body aches) Skin: Reports: No Symptoms Neurological: Reports: No Symptoms Psychiatric: Reports: Anxiety Hematologic/Lymphatic: Reports: No Symptoms Immunologic: Reports: No Symptoms ED EXAM, GENERAL - Physical Exam Exam: See Below Exam Limited By: No Limitations General Appearance: Alert, WD/WN, No Apparent Distress Eye Exam: Bilateral Eye: Normal Inspection, PERRL Ears: Normal External Exam, Normal Canal, Hearing Grossly Normal, Normal TMs Ear Exam: Bilateral Ear: Auricle Normal, Canal Normal, TM normal Nose: Normal Inspection, Normal Mucosa, No Blood Throat/Mouth: Normal Inspection, Normal Lips, Normal Teeth, Normal Gums, Normal Oropharynx, Normal Voice, No Airway Compromise Head: Atraumatic, Normocephalic Neck: Normal Inspection, Supple, Non-Tender, Full Range of Motion Respiratory/Chest: No Respiratory Distress, Rhonchi, Wheezing. No: No Accessory Muscle Use, Respiratory Distress, Stridor, Accessory Muscle Use, Retractions, Splinting, Prolonged Expiration Cardiovascular: Normal Peripheral Pulses, Regular Rate, Rhythm, No Edema, No Gallop, No JVD, No Murmur, No Rub Peripheral Pulses: 2+: Radial (L), Radial (R), Posterior Tibial (L), Posterior Tibial (R) GI/Abdominal: Soft, Non-Tender, No Organomegaly Back Exam: Normal Inspection, Full Range of Motion. No: CVA Tenderness (L), CVA Tenderness (R) Extremities: Normal Inspection, Normal Range of Motion, Non-Tender, No Pedal Edema, Normal Capillary Refill Neurological: Alert, Oriented, Normal Cognition, Normal Gait, No Motor/Sensory Deficits Psychiatric: Normal Affect, Normal Mood, Anxious (prior to telling her COVID result. Post result, she said she feels very relieved and no longer anxious.) Skin Exam: Warm, Dry, Intact, Normal Color, No Rash Lymphatic: No Adenopathy Course - Vital Signs Last Recorded V/S: Last Vital Signs Temp 99.1 F 02/28/20 15:32 Pulse 97 02/28/20 14:40 Resp 16 02/28/20 14:40 BP 132/82 02/28/20 14:40 Pulse Ox 96 02/28/20 14:40 - Orders/Labs/Meds Orders: Active Orders 24 hr Category Date Time Status RT Aerosol Therapy [RC] ASDIRECTED Care 02/28/20 15:20 Active Chest 2V [CR] Stat Exams 02/28/20 15:20 Ordered CULTURE BLOOD [BC] Stat Lab 02/28/20 15:30 Received CULTURE BLOOD [BC] Stat Lab 02/28/20 15:40 Received Blood Culture x2 Reflex Set [OM.PC] Stat Oth 02/28/20 15:19 Ordered Isolation [COMM] Routine Oth 02/28/20 15:19 Active Labs: Laboratory Tests 02/28/20 02/28/20 02/28/20 Range/Units 14:35 15:40 15:40 WBC 10.4 H (5.0-10.0) 10^3/uL RBC 4.93 (4.00-5.50) 10^6/uL Hgb 14.7 (12.0-16.0) g/dL Hct 45.2 (37.0-47.0) % MCV 91.7 (82.0-94.0) fL MCH 29.8 (27.0-32.0) pg MCHC 32.5 L (33.0-38.0) g/dL RDW Coeff of Farideh 13.2 (11.0-15.0) % Plt Count 236 (150-400) 10^3/uL Neut % (Auto) 78.4 (35-85) % Lymph % (Auto) 9.7 L (10-55) % [place] % (Auto) 7.3 (0-16) % Eos % (Auto) 4.2 (0-5) % Baso % (Auto) 0.4 (0-3) % Neut # (Auto) 8.12 H (1.80-7.00) 10^3/uL Lymph # (Auto) 1.00 (1.00-4.80) 10^3/uL [place] # (Auto) 0.76 (0.00-0.80) 10^3/uL Eos # (Auto) 0.44 (0.00-0.45) 10^3/uL Baso # (Auto) 0.04 10^3/uL Sodium 139 (136-145) mEq/L Potassium 4.1 (3.5-5.0) mEq/L Chloride 104 (98-106) mEq/L Carbon Dioxide 27 (21-32) mmol/L BUN 10 (7-18) mg/dL Creatinine 0.9 (0.6-1.0) mg/dL Est Cr Clr Drug Dosing 65.34 mL/min Estimated GFR (MDRD) > 60 (>=60) mL/min Glucose 105 H (75-99) mg/dL Lactic Acid (0.4-2.0) mmol/L Calcium 9.3 (8.4-10.1) mg/dL Total Bilirubin 0.8 (0.0-1.0) mg/dL AST 15 (15-37) U/L ALT 24 (12-78) U/L Alkaline Phosphatase 69 (46-116) U/L C-Reactive Protein 2.6 H (0.2-0.8) mg/dL Total Protein 8.0 (6.4-8.2) g/dL Albumin 3.8 (3.4-5.0) g/dL COVID-19 ([place]) Negative (NEGATIVE) 02/28/20 Range/Units 15:40 WBC (5.0-10.0) 10^3/uL RBC (4.00-5.50) 10^6/uL Hgb (12.0-16.0) g/dL Hct (37.0-47.0) % MCV (82.0-94.0) fL MCH (27.0-32.0) pg MCHC (33.0-38.0) g/dL RDW Coeff of Farideh (11.0-15.0) % Plt Count (150-400) 10^3/uL Neut % (Auto) (35-85) % Lymph % (Auto) (10-55) % [place] % (Auto) (0-16) % Eos % (Auto) (0-5) % Baso % (Auto) (0-3) % Neut # (Auto) (1.80-7.00) 10^3/uL Lymph # (Auto) (1.00-4.80) 10^3/uL [place] # (Auto) (0.00-0.80) 10^3/uL Eos # (Auto) (0.00-0.45) 10^3/uL Baso # (Auto) 10^3/uL Sodium (136-145) mEq/L Potassium (3.5-5.0) mEq/L Chloride (98-106) mEq/L Carbon Dioxide (21-32) mmol/L BUN (7-18) mg/dL Creatinine (0.6-1.0) mg/dL Est Cr Clr Drug Dosing mL/min Estimated GFR (MDRD) (>=60) mL/min Glucose (75-99) mg/dL Lactic Acid 0.3 L (0.4-2.0) mmol/L Calcium (8.4-10.1) mg/dL Total Bilirubin (0.0-1.0) mg/dL AST (15-37) U/L ALT (12-78) U/L Alkaline Phosphatase (46-116) U/L C-Reactive Protein (0.2-0.8) mg/dL Total Protein (6.4-8.2) g/dL Albumin (3.4-5.0) g/dL COVID-19 ([place]) (NEGATIVE) Meds: Medications Discontinued Medications Generic Name Dose Route Start Last Admin Trade Name Harley PRN Reason Stop Dose Admin Acetaminophen 1,000 mg 02/28/20 15:25 02/28/20 15:32 Tylenol Extra Strength PO 02/28/20 15:26 1,000 mg ONETIME ONE Administration Albuterol/Ipratropium 3 ml 02/28/20 15:20 02/28/20 15:27 Duoneb 3.0-0.5 Mg/3 Ml NEB 02/28/20 15:21 3 ml ONETIME ONE Administration - Radiology Interpretation Free Text/Narrative:: CXR: no acute findings. - Re-Assessments/Exams Free Text/Narrative Re-Assessment/Exam: 02/28/20 16:17 Patient is 97%, no acute distress. moving good air. She reports she feels much better and less anxious after negative COVID test. Will discharge. Departure - Departure Time of Disposition: 16:04 Disposition: Home, Self-Care 01 Condition: Fair Clinical Impression: Bronchitis - Discharge Information *PRESCRIPTION DRUG MONITORING PROGRAM REVIEWED*: Not Applicable *COPY OF PRESCRIPTION DRUG MONITORING REPORT IN PATIENT YAMILET: Not Applicable Prescriptions: Cefdinir 300 mg PO BID 10 Days #20 capsule Albuterol/Ipratropium [DuoNeb 3.0-0.5 MG/3 ML] 3 ml .XX Q6HR PRN #60 neb PRN Reason: Shortness Of Breath methylPREDNISolone [Medrol Dose Pack] 4 mg PO ASDIRECTED 5 Days #1 dospk Albuterol [Proair HFA] 1 puff IH Q4H PRN #1 inhaler PRN Reason: Shortness Of Breath Forms: ED Department Discharge Additional Instructions: Followup with primary care provider Return to the ER for worsening of condition or any emergent concerns Increase fluids Tylenol or Motrin for fever and pain/aches Duoneb machine #1 no refill Duonebs #60 every 4 hours as needed for shortness of breath Medrol Dose Pack as directed #1 no refill Cefdinir 300mg 1 pill twice a day for 10 days #20 no refill Pro-air inhaler 90mcg 1-2 puffs every 4-6 hours as needed for shortness of breath #1 no refill Sepsis Event Note (ED) - Evaluation Sepsis Screening Result: Possible Sepsis Risk - Focused Exam Vital Signs: Vital Signs Temp Temp Pulse Resp BP Pulse Ox 02/28/20 15:32 99.1 F 02/28/20 14:40 99.1 F 97 16 132/82 96 - My Orders Last 24 Hours: My Active Orders 02/28/20 15:19 Blood Culture x2 Reflex Set [OM.PC] Stat Isolation [COMM] Routine 02/28/20 15:20 RT Aerosol Therapy [RC] ASDIRECTED Chest 2V [CR] Stat 02/28/20 15:30 CULTURE BLOOD [BC] Stat 02/28/20 15:40 CULTURE BLOOD [BC] Stat - Assessment/Plan Last 24 Hours: My Active Orders 02/28/20 15:19 Blood Culture x2 Reflex Set [OM.PC] Stat Isolation [COMM] Routine 02/28/20 15:20 RT Aerosol Therapy [RC] ASDIRECTED Chest 2V [CR] Stat 02/28/20 15:30 CULTURE BLOOD [BC] Stat 02/28/20 15:40 CULTURE BLOOD [BC] Stat Plan: PLEASE SEE RN NOTE FOR PFSH
[2020-02-28] MEDS: Albuterol/Ipratropium 3.0-0.5 MG/3 ML Neb Soln NEB ONE (15:27)
[2020-02-28] MEDS: Acetaminophen 500 MG Tab PO ONE (15:32)
[2020-02-28 15:59] LABS: CHLORIDE,CL 104 mEq/L (98-106); SODIUM,NA 139 mEq/L (136-145)
== END 2020-02-28 16:25 | disposition home or self-care (01) ==
LOC: CC.ED 14:35
DX: J40 Bronchitis, not specified as acute or chronic (principal); Z20.828 Contact with and (suspected) exposure to other viral communicable diseases; Z87.891 Personal history of nicotine dependence
CPT/HCPCS: 36415; 71046; 80053; 83605; 85025; 86140; 87040; 87635; 87804; 94640; 99284; A9270; J7620-GY; U0002

== ENCOUNTER 2020-09-13 10:01 | Observation (INO) | payer BC, OTHER ==
[2020-09-13] MEDS: Ondansetron 4 MG/2 ML SDV IVPUSH PRN (10:23)
[2020-09-13 10:41] LABS: CHLORIDE,CL 106 mEq/L (98-106); SODIUM,NA 143 mEq/L (136-145)
--- NOTE | 2020-09-13 10:58 | EDM.PDOC ---
ED HPI GENERAL MEDICAL PROBLEM - General Chief Complaint: General Stated Complaint: dizziness, N/V Time Seen by Provider: 09/13/20 10:37 Source of Information: Reports: Patient History Limitations: Reports: No Limitations - History of Present Illness INITIAL COMMENTS - FREE TEXT/NARRATIVE: Carmelita is a 54 year old female who presents to the ER with a 2 day history of dizziness. States symptoms are worsening. Yesterday while cleaning, started to note mild dizziness and thought was possibly related to not eating yet. Ate dinner and then laid down for a nap. Last evening, continued to not feel well so spent much of evening lying on couch. Admits that if keeps head still, feels much better. Was able to sleep last night but when got up this am, dizziness was far worse. Was in the bathroom and was unsure could even walk back and felt like crawling. Presented here and symptoms were worse again with getting up as now is vomiting as well. States if keeps head still, much better. Does have headache. No head trauma. No sinus congestion or drainage. No fevers. Denies chest pain, shortness of breath or abdominal pain. No urinary symptoms. No covid exposure. No history of vertigo. Onset: Gradual Duration: Day(s):, Getting Worse Location: Reports: Head Severity: Moderate Improves with: Reports: Rest Worsens with: Reports: Movement Associated Symptoms: Reports: Headaches. Denies: Confusion, Chest Pain, Cough, Loss of Appetite, Nausea/Vomiting, Shortness of Breath Headache Pain Score (Numeric/FACES): 8 - Related Data Allergies Allergy/AdvReac Type Severity Reaction Status Date / Time No Known Allergies Allergy Verified 09/13/20 10:05 Home Meds: Home Meds . [No Known Home Meds] 09/13/20 [History] Past Medical History HEENT History: Reports: None Cardiovascular History: Reports: None Respiratory History: Reports: None Gastrointestinal History: Reports: GERD Genitourinary History: Reports: None ASSOCIATE PROFESSOR OF PHYSICS History: Reports: None, Other (See Below) Other ASSOCIATE PROFESSOR OF PHYSICS History: tubal Musculoskeletal History: Reports: None Neurological History: Reports: None Psychiatric History: Reports: Anxiety Endocrine/Metabolic History: Reports: None Hematologic History: Reports: None Immunologic History: Reports: None Oncologic (Cancer) History: Reports: None Dermatologic History: Reports: None - Infectious Disease History Infectious Disease History: Reports: None - Past Surgical History Head Surgeries/Procedures: Reports: None HEENT Surgical History: Reports: Oral Surgery Other HEENT Surgeries/Procedures: wisdom teeth removal GI Surgical History: Reports: None Female Surgical History: Reports: Other (See Below) Other Female Surgeries/Procedures: right fallopian tube removed d/t ectopic pregnacy Social & Family History - Family History Family Medical History: No Pertinent Family History Cardiac: Reports: CAD, High Cholesterol, Hypertension, [place] - Tobacco Use Tobacco Use Status *Q: Former Tobacco User Used Tobacco, but Quit: Yes Month/Year Tobacco Last Used: 1 year ago - Caffeine Use Caffeine Use: Reports: Soda - Recreational Drug Use Recreational Drug Use: No - Living Situation & Occupation Living situation: Reports: with Family Occupation: Employed ED ROS GENERAL - Review of Systems Review Of Systems: See Below Constitutional: Denies: Fever, Chills, Malaise, Weakness, Decreased Appetite HEENT: Reports: Vertigo. Denies: Ear Pain, Rhinitis, Sinus Problem, Throat Pain Respiratory: Denies: Shortness of Breath, Cough Cardiovascular: Denies: Chest Pain, Blood Pressure Problem, Edema, Lightheadedness, Palpitations Endocrine: Reports: No Symptoms GI/Abdominal: Reports: Nausea, Vomiting. Denies: Abdominal Pain, Constipation, Diarrhea : Reports: No Symptoms Musculoskeletal: Reports: No Symptoms Skin: Reports: No Symptoms Neurological: Reports: Dizziness, Headache ED EXAM, GENERAL - Physical Exam Exam: See Below Exam Limited By: No Limitations General Appearance: Alert, WD/WN, No Apparent Distress Ears: Normal External Exam, Normal TMs Nose: Normal Inspection, Normal Mucosa, No Blood Throat/Mouth: Normal Inspection, Normal Oropharynx Head: Normocephalic Neck: Normal Inspection, Supple, Non-Tender Respiratory/Chest: No Respiratory Distress, Lungs Clear, Normal Breath Sounds Cardiovascular: Regular Rate, Rhythm GI/Abdominal: Normal Bowel Sounds, Soft, Non-Tender Neurological: Alert, Oriented, CN II-XII Intact, Normal Cognition, Other (very symptomatic with any head movement, sonu hallpike not performed due to nausea/vomiting with any head movement) Skin Exam: Warm, Dry Course - Vital Signs Last Recorded V/S: Last Vital Signs Temp 98.0 F 09/13/20 10:07 Pulse 71 09/13/20 10:07 Resp 16 09/13/20 10:07 BP 161/84 H 09/13/20 10:07 Pulse Ox 96 09/13/20 10:07 - Orders/Labs/Meds Orders: Active Orders 24 hr Category Date Time Status Head wo Cont [CT] Stat Exams 09/13/20 10:19 Taken CORONAVIRUS COVID-19 RAPID [MOLEC] Stat Lab 09/13/20 10:47 Ordered Ondansetron [Zofran] Med 09/13/20 10:16 Active 4 mg IVPUSH Q6H PRN EKG 12 Lead [EK] Stat Ther 09/13/20 10:20 Ordered Medication Orders Ondansetron HCl (Zofran) 4 mg IVPUSH Q6H PRN PRN Reason: Nausea Last Admin: 09/13/20 10:23 Dose: 4 mg Documented by: JABIER Labs: Laboratory Tests 09/13/20 09/13/20 09/13/20 Range/Units 10:18 10:18 10:54 WBC 5.5 (5.0-10.0) 10^3/uL RBC 4.75 (4.00-5.50) 10^6/uL Hgb 14.2 (12.0-16.0) g/dL Hct 43.0 (37.0-47.0) % MCV 90.5 (82.0-94.0) fL MCH 29.9 (27.0-32.0) pg MCHC 33.0 (33.0-38.0) g/dL RDW Coeff of Farideh 13.2 (11.0-15.0) % Plt Count 227 (150-400) 10^3/uL Neut % (Auto) 68.3 (35-85) % Lymph % (Auto) 23.0 (10-55) % [place] % (Auto) 5.6 (0-16) % Eos % (Auto) 2.6 (0-5) % Baso % (Auto) 0.5 (0-3) % Neut # (Auto) 3.75 (1.80-7.00) 10^3/uL Lymph # (Auto) 1.26 (1.00-4.80) 10^3/uL [place] # (Auto) 0.31 (0.00-0.80) 10^3/uL Eos # (Auto) 0.14 (0.00-0.45) 10^3/uL Baso # (Auto) 0.03 10^3/uL Sodium 143 (136-145) mEq/L Potassium 3.5 (3.5-5.0) mEq/L Chloride 106 (98-106) mEq/L Carbon Dioxide 25 (21-32) mmol/L BUN 11 (7-18) mg/dL Creatinine 0.8 (0.6-1.0) mg/dL Est Cr Clr Drug Dosing 70.66 mL/min Estimated GFR (MDRD) > 60 (>=60) mL/min Glucose 133 H D (75-99) mg/dL Calcium 8.9 (8.4-10.1) mg/dL Total Bilirubin 0.5 (0.0-1.0) mg/dL AST 13 L (15-37) U/L ALT 22 (12-78) U/L Alkaline Phosphatase 70 (46-116) U/L Troponin I < 0.017 (0.00-0.06) ng/mL C-Reactive Protein < 0.2 L (0.2-0.8) mg/dL Total Protein 7.1 (6.4-8.2) g/dL Albumin 3.4 (3.4-5.0) g/dL Urine Color Yellow (YELLOW) Urine Appearance Clear (CLEAR) Urine pH 7.0 (4.5-8.0) Ur Specific [place] 1.020 (1.003-1.020) Urine Protein Negative (NEGATIVE) mg/dL Urine Glucose (UA) Negative (NEGATIVE) mg/dL Urine Ketones Negative (NEGATIVE) mg/dL Urine Occult Blood Trace-intact H (NEGATIVE) Urine Nitrite Negative (NEGATIVE) Urine Bilirubin Negative (NEGATIVE) Urine Urobilinogen 0.2 (0.2-1.0) EU/dL Ur Leukocyte Esterase Negative (NEGATIVE) Urine RBC Not seen (0-5) /HPF Urine WBC Not seen (0-5) /HPF Meds: Medications Generic Name Dose Route Start Last Admin Trade Name Freq PRN Reason Stop Dose Admin Ondansetron HCl 4 mg 09/13/20 10:16 09/13/20 10:23 Zofran IVPUSH 4 mg Q6H PRN Administration Nausea - Re-Assessments/Exams Free Text/Narrative Re-Assessment/Exam: 09/13/20 11:15 Labs are all normal. Awaiting CT. Was given Zofran with minimal relief. Will admit due to ongoing vertiginous symptoms. Cardiac monitoring. Zofran and phenergan, start meclizine. PT for canalith repositioning tomorrow. Departure - Departure Time of Disposition: 11:15 Disposition: Refer to Observation Condition: Fair Clinical Impression: Vertigo - Discharge Information *PRESCRIPTION DRUG MONITORING PROGRAM REVIEWED*: No *COPY OF PRESCRIPTION DRUG MONITORING REPORT IN PATIENT YAMILET: No Referrals: PCP,Unknown [Primary Care Provider] - Forms: ED Department Discharge Sepsis Event Note (ED) - Evaluation Sepsis Screening Result: No Definite Risk - Focused Exam Vital Signs: Vital Signs Temp Pulse Resp BP Pulse Ox 09/13/20 10:07 98.0 F 71 16 161/84 H 96 - Problem List & Annotations (1) Vertigo SNOMED Code(s): 110733837 Code(s): R42 - DIZZINESS AND GIDDINESS Status: Acute Priority: High Current Visit: Yes - Problem List Review Problem List Initiated/Reviewed/Updated: Yes - My Orders Last 24 Hours: My Active Orders 09/13/20 10:16 Ondansetron [Zofran] 4 mg IVPUSH Q6H PRN 09/13/20 10:19 Head wo Cont [CT] Stat 09/13/20 10:20 EKG 12 Lead [EK] Stat 09/13/20 10:47 CORONAVIRUS COVID-19 RAPID [MOLEC] Stat - Assessment/Plan Admission H&P: Please use this note as an admission H&P Last 24 Hours: My Active Orders 09/13/20 10:16 Ondansetron [Zofran] 4 mg IVPUSH Q6H PRN 09/13/20 10:19 Head wo Cont [CT] Stat 09/13/20 10:20 EKG 12 Lead [EK] Stat 09/13/20 10:47 CORONAVIRUS COVID-19 RAPID [MOLEC] Stat Assessment:: Vertigo Plan: Admit to observation. Meclizine Phenergan or Zofran for nausea/vomiting IV fluids cardiac monitoring PT to evaluate in am
[2020-09-13] MEDS: Enoxaparin 40 MG/0.4 ML Syringe SUBCUT SCH ×2 (12:25→12:52)
[2020-09-13] MEDS ORDERED: Promethazine 25 MG Tab PO PRN (12:32)
[2020-09-13] MEDS: Meclizine 12.5 MG Tab PO SCH ×3 (12:52→19:51)
[2020-09-13] MEDS ORDERED: Acetaminophen 325 MG Tab PO PRN (16:38)
[2020-09-13] MEDS: Sodium Chloride 0.9% 1,000 ML IV SCH (17:00)
[2020-09-13] MEDS: Acetaminophen 325 MG Tab PO PRN (17:08)
[2020-09-14] MEDS: Sodium Chloride 0.9% 1,000 ML IV SCH (06:12)
[2020-09-14 07:21] LABS: CHLORIDE,CL 110 mEq/L (98-106); SODIUM,NA 145 mEq/L (136-145)
[2020-09-14] MEDS: Meclizine 12.5 MG Tab PO SCH ×3 (07:35→19:18)
--- NOTE | 2020-09-14 09:05 | PCM.PN ---
- General Info Date of Service: 09/14/20 Admission Dx/Problem (Free Text): BPPV Subjective Update: Carmelita is a 54 yo female who was admitted to the hospital yesterday from the ED with vertigo. Lab work unremarkable as well as head CT. Did have some episodes of bradycardia overnight, but this has been a chronic thing for her. Has seen cardiology in the past for this. Has continued to have nausea and vertigo with any movement. She has not had emesis since ED presentation. Does report she fee ls ok when she is lying still. Admits she has had some increased stress from her job. Also reports she was having some work on her house and concerned maybe she had carbon monoxide. No other family members in the house with any symptoms. Functional Status: Reports: Pain Controlled. Denies: New Symptoms - Review of Systems General: Reports: No Symptoms Pulmonary: Reports: No Symptoms Cardiovascular: Reports: No Symptoms Gastrointestinal: Reports: Nausea. Denies: Abdominal Pain, Decreased Appetite, Diarrhea, Hematochezia, Melena, Vomiting Genitourinary: Reports: No Symptoms Musculoskeletal: Reports: No Symptoms Skin: Reports: No Symptoms Neurological: Reports: Dizziness, Headache Psychiatric: Reports: No Symptoms - Patient Data Vitals - Most Recent: Last Vital Signs Temp 97.7 F 09/14/20 07:31 Pulse 55 L 09/14/20 07:31 Resp 18 09/14/20 07:31 BP 145/77 H 09/14/20 07:31 Pulse Ox 95 09/14/20 07:31 Weight - Most Recent: 190 lb I&O - Last 24 Hours: Intake & Output 09/13/20 09/14/20 09/14/20 22:59 06:59 14:59 Intake Total 990 Balance 990 Lab Results Last 24 Hours: Laboratory Results - last 24 hr 09/13/20 09/13/20 09/13/20 Range/Units 10:18 10:18 10:47 WBC 5.5 (5.0-10.0) 10^3/uL RBC 4.75 (4.00-5.50) 10^6/uL Hgb 14.2 (12.0-16.0) g/dL Hct 43.0 (37.0-47.0) % MCV 90.5 (82.0-94.0) fL MCH 29.9 (27.0-32.0) pg MCHC 33.0 (33.0-38.0) g/dL RDW Coeff of Farideh 13.2 (11.0-15.0) % Plt Count 227 (150-400) 10^3/uL Neut % (Auto) 68.3 (35-85) % Lymph % (Auto) 23.0 (10-55) % [place] % (Auto) 5.6 (0-16) % Eos % (Auto) 2.6 (0-5) % Baso % (Auto) 0.5 (0-3) % Neut # (Auto) 3.75 (1.80-7.00) 10^3/uL Lymph # (Auto) 1.26 (1.00-4.80) 10^3/uL [place] # (Auto) 0.31 (0.00-0.80) 10^3/uL Eos # (Auto) 0.14 (0.00-0.45) 10^3/uL Baso # (Auto) 0.03 10^3/uL Sodium 143 (136-145) mEq/L Potassium 3.5 (3.5-5.0) mEq/L Chloride 106 (98-106) mEq/L Carbon Dioxide 25 (21-32) mmol/L BUN 11 (7-18) mg/dL Creatinine 0.8 (0.6-1.0) mg/dL Est Cr Clr Drug Dosing 70.66 mL/min Estimated GFR (MDRD) > 60 (>=60) mL/min Glucose 133 H D (75-99) mg/dL Calcium 8.9 (8.4-10.1) mg/dL Total Bilirubin 0.5 (0.0-1.0) mg/dL AST 13 L (15-37) U/L ALT 22 (12-78) U/L Alkaline Phosphatase 70 (46-116) U/L Troponin I < 0.017 (0.00-0.06) ng/mL C-Reactive Protein < 0.2 L (0.2-0.8) mg/dL Total Protein 7.1 (6.4-8.2) g/dL Albumin 3.4 (3.4-5.0) g/dL Urine Color (YELLOW) Urine Appearance (CLEAR) Urine pH (4.5-8.0) Ur Specific [place] (1.003-1.020) Urine Protein (NEGATIVE) mg/dL Urine Glucose (UA) (NEGATIVE) mg/dL Urine Ketones (NEGATIVE) mg/dL Urine Occult Blood (NEGATIVE) Urine Nitrite (NEGATIVE) Urine Bilirubin (NEGATIVE) Urine Urobilinogen (0.2-1.0) EU/dL Ur Leukocyte Esterase (NEGATIVE) Urine RBC (0-5) /HPF Urine WBC (0-5) /HPF SARS CoV-2 RNA Rapid [place] Negative (NEGATIVE) 09/13/20 09/14/20 09/14/20 Range/Units 10:54 06:50 06:50 WBC 5.8 (5.0-10.0) 10^3/uL RBC 4.46 (4.00-5.50) 10^6/uL Hgb 13.2 (12.0-16.0) g/dL Hct 41.6 (37.0-47.0) % MCV 93.3 (82.0-94.0) fL MCH 29.6 (27.0-32.0) pg MCHC 31.7 L (33.0-38.0) g/dL RDW Coeff of Farideh 13.3 (11.0-15.0) % Plt Count 211 (150-400) 10^3/uL Neut % (Auto) 53.2 (35-85) % Lymph % (Auto) 34.9 (10-55) % [place] % (Auto) 9.0 (0-16) % Eos % (Auto) 2.6 (0-5) % Baso % (Auto) 0.3 (0-3) % Neut # (Auto) 3.08 (1.80-7.00) 10^3/uL Lymph # (Auto) 2.02 (1.00-4.80) 10^3/uL [place] # (Auto) 0.52 (0.00-0.80) 10^3/uL Eos # (Auto) 0.15 (0.00-0.45) 10^3/uL Baso # (Auto) 0.02 10^3/uL Sodium 145 (136-145) mEq/L Potassium 3.8 (3.5-5.0) mEq/L Chloride 110 H (98-106) mEq/L Carbon Dioxide 27 (21-32) mmol/L BUN 11 (7-18) mg/dL Creatinine 0.8 (0.6-1.0) mg/dL Est Cr Clr Drug Dosing 70.66 mL/min Estimated GFR (MDRD) > 60 (>=60) mL/min Glucose 92 D (75-99) mg/dL Calcium 8.8 (8.4-10.1) mg/dL Total Bilirubin (0.0-1.0) mg/dL AST (15-37) U/L ALT (12-78) U/L Alkaline Phosphatase (46-116) U/L Troponin I (0.00-0.06) ng/mL C-Reactive Protein (0.2-0.8) mg/dL Total Protein (6.4-8.2) g/dL Albumin (3.4-5.0) g/dL Urine Color Yellow (YELLOW) Urine Appearance Clear (CLEAR) Urine pH 7.0 (4.5-8.0) Ur Specific [place] 1.020 (1.003-1.020) Urine Protein Negative (NEGATIVE) mg/dL Urine Glucose (UA) Negative (NEGATIVE) mg/dL Urine Ketones Negative (NEGATIVE) mg/dL Urine Occult Blood Trace-intact H (NEGATIVE) Urine Nitrite Negative (NEGATIVE) Urine Bilirubin Negative (NEGATIVE) Urine Urobilinogen 0.2 (0.2-1.0) EU/dL Ur Leukocyte Esterase Negative (NEGATIVE) Urine RBC Not seen (0-5) /HPF Urine WBC Not seen (0-5) /HPF SARS CoV-2 RNA Rapid [place] (NEGATIVE) Med Orders - Current: Current Medications Acetaminophen (Tylenol) 650 mg PO Q6H PRN PRN Reason: Headache Last Admin: 09/13/20 17:08 Dose: 650 mg Documented by: Enoxaparin Sodium (Lovenox) 40 mg SUBCUT Q24H [facility] Last Admin: 09/13/20 12:25 Dose: Not Given Documented by: Sodium Chloride (Normal Saline) 1,000 mls @ 75 mls/hr IV ASDIRECTED [facility] Last Admin: 09/14/20 06:12 Dose: 75 mls/hr Documented by: Meclizine HCl (Antivert) 25 mg PO TID [facility] Last Admin: 09/14/20 07:35 Dose: 25 mg Documented by: Ondansetron HCl (Zofran) 4 mg IVPUSH Q6H PRN PRN Reason: Nausea Last Admin: 09/13/20 10:23 Dose: 4 mg Documented by: Promethazine HCl (Phenergan) 25 mg PO Q6H PRN PRN Reason: nausea, able to take PO - Exam Quality Assessment: DVT Prophylaxis General: Alert, Oriented, No Acute Distress HEENT: Pupils Equal, Pupils Reactive, EOMI, Mucous Membr. Moist/[place] Neck: Supple Lungs: Clear to Auscultation, Normal Respiratory Effort Cardiovascular: Regular Rhythm, Bradycardia GI/Abdominal Exam: Normal Bowel Sounds, Soft, Non-Tender, No Organomegaly, No Distention, No Abnormal Bruit, No Mass, Pelvis Stable Back Exam: Normal Inspection, Full Range of Motion Extremities: Normal Inspection, Normal Range of Motion, Non-Tender, No Pedal Edema, Normal Capillary Refill Skin: Warm, Dry, Intact Neurological: No New Focal Deficit Psy/Mental Status: Alert, Normal Affect, Normal Mood - Patient Data Lab Results Last 24 hrs: Laboratory Results - last 24 hr 09/13/20 09/13/20 09/13/20 Range/Units 10:18 10:18 10:47 WBC 5.5 (5.0-10.0) 10^3/uL RBC 4.75 (4.00-5.50) 10^6/uL Hgb 14.2 (12.0-16.0) g/dL Hct 43.0 (37.0-47.0) % MCV 90.5 (82.0-94.0) fL MCH 29.9 (27.0-32.0) pg MCHC 33.0 (33.0-38.0) g/dL RDW Coeff of Farideh 13.2 (11.0-15.0) % Plt Count 227 (150-400) 10^3/uL Neut % (Auto) 68.3 (35-85) % Lymph % (Auto) 23.0 (10-55) % [place] % (Auto) 5.6 (0-16) % Eos % (Auto) 2.6 (0-5) % Baso % (Auto) 0.5 (0-3) % Neut # (Auto) 3.75 (1.80-7.00) 10^3/uL Lymph # (Auto) 1.26 (1.00-4.80) 10^3/uL [place] # (Auto) 0.31 (0.00-0.80) 10^3/uL Eos # (Auto) 0.14 (0.00-0.45) 10^3/uL Baso # (Auto) 0.03 10^3/uL Sodium 143 (136-145) mEq/L Potassium 3.5 (3.5-5.0) mEq/L Chloride 106 (98-106) mEq/L Carbon Dioxide 25 (21-32) mmol/L BUN 11 (7-18) mg/dL Creatinine 0.8 (0.6-1.0) mg/dL Est Cr Clr Drug Dosing 70.66 mL/min Estimated GFR (MDRD) > 60 (>=60) mL/min Glucose 133 H D (75-99) mg/dL Calcium 8.9 (8.4-10.1) mg/dL Total Bilirubin 0.5 (0.0-1.0) mg/dL AST 13 L (15-37) U/L ALT 22 (12-78) U/L Alkaline Phosphatase 70 (46-116) U/L Troponin I < 0.017 (0.00-0.06) ng/mL C-Reactive Protein < 0.2 L (0.2-0.8) mg/dL Total Protein 7.1 (6.4-8.2) g/dL Albumin 3.4 (3.4-5.0) g/dL Urine Color (YELLOW) Urine Appearance (CLEAR) Urine pH (4.5-8.0) Ur Specific [place] (1.003-1.020) Urine Protein (NEGATIVE) mg/dL Urine Glucose (UA) (NEGATIVE) mg/dL Urine Ketones (NEGATIVE) mg/dL Urine Occult Blood (NEGATIVE) Urine Nitrite (NEGATIVE) Urine Bilirubin (NEGATIVE) Urine Urobilinogen (0.2-1.0) EU/dL Ur Leukocyte Esterase (NEGATIVE) Urine RBC (0-5) /HPF Urine WBC (0-5) /HPF SARS CoV-2 RNA Rapid [place] Negative (NEGATIVE) 09/13/20 09/14/20 09/14/20 Range/Units 10:54 06:50 06:50 WBC 5.8 (5.0-10.0) 10^3/uL RBC 4.46 (4.00-5.50) 10^6/uL Hgb 13.2 (12.0-16.0) g/dL Hct 41.6 (37.0-47.0) % MCV 93.3 (82.0-94.0) fL MCH 29.6 (27.0-32.0) pg MCHC 31.7 L (33.0-38.0) g/dL RDW Coeff of Farideh 13.3 (11.0-15.0) % Plt Count 211 (150-400) 10^3/uL Neut % (Auto) 53.2 (35-85) % Lymph % (Auto) 34.9 (10-55) % [place] % (Auto) 9.0 (0-16) % Eos % (Auto) 2.6 (0-5) % Baso % (Auto) 0.3 (0-3) % Neut # (Auto) 3.08 (1.80-7.00) 10^3/uL Lymph # (Auto) 2.02 (1.00-4.80) 10^3/uL [place] # (Auto) 0.52 (0.00-0.80) 10^3/uL Eos # (Auto) 0.15 (0.00-0.45) 10^3/uL Baso # (Auto) 0.02 10^3/uL Sodium 145 (136-145) mEq/L Potassium 3.8 (3.5-5.0) mEq/L Chloride 110 H (98-106) mEq/L Carbon Dioxide 27 (21-32) mmol/L BUN 11 (7-18) mg/dL Creatinine 0.8 (0.6-1.0) mg/dL Est Cr Clr Drug Dosing 70.66 mL/min Estimated GFR (MDRD) > 60 (>=60) mL/min Glucose 92 D (75-99) mg/dL Calcium 8.8 (8.4-10.1) mg/dL Total Bilirubin (0.0-1.0) mg/dL AST (15-37) U/L ALT (12-78) U/L Alkaline Phosphatase (46-116) U/L Troponin I (0.00-0.06) ng/mL C-Reactive Protein (0.2-0.8) mg/dL Total Protein (6.4-8.2) g/dL Albumin (3.4-5.0) g/dL Urine Color Yellow (YELLOW) Urine Appearance Clear (CLEAR) Urine pH 7.0 (4.5-8.0) Ur Specific [place] 1.020 (1.003-1.020) Urine Protein Negative (NEGATIVE) mg/dL Urine Glucose (UA) Negative (NEGATIVE) mg/dL Urine Ketones Negative (NEGATIVE) mg/dL Urine Occult Blood Trace-intact H (NEGATIVE) Urine Nitrite Negative (NEGATIVE) Urine Bilirubin Negative (NEGATIVE) Urine Urobilinogen 0.2 (0.2-1.0) EU/dL Ur Leukocyte Esterase Negative (NEGATIVE) Urine RBC Not seen (0-5) /HPF Urine WBC Not seen (0-5) /HPF SARS CoV-2 RNA Rapid [place] (NEGATIVE) Result Diagrams: 09/14/20 06:50 09/14/20 06:50 Sepsis Event Note - Evaluation Sepsis Screening Result: No Definite Risk - Focused Exam Vital Signs: Vital Signs Temp Pulse Resp BP Pulse Ox 09/14/20 07:31 97.7 F 55 L 18 145/77 H 95 09/14/20 04:00 48 L 09/14/20 00:00 98.5 F 68 16 106/62 94 L - Problem List & Annotations (1) Vertigo SNOMED Code(s): 814744435 Code(s): R42 - DIZZINESS AND GIDDINESS Status: Acute Priority: High Current Visit: Yes - Problem List Review Problem List Initiated/Reviewed/Updated: Yes - Assessment Assessment:: Vertigo - Plan Plan:: Patient reports ongoing vertigo symptoms and nausea with any movement. She did have canalith repositioning this morning with PT without improvement in symptoms. She reports she does not have anyone to help her at home and wishes to stay another day. Will continue with meclizine and antiemetics as needed. PT to see again tomorrow. Continue IVF. Labs unremarkable. Anticipate discharge tomorrow.
[2020-09-14] MEDS: Ondansetron 4 MG/2 ML SDV IVPUSH PRN (10:41)
[2020-09-14] MEDS: Enoxaparin 40 MG/0.4 ML Syringe SUBCUT SCH (13:16)
[2020-09-15 07:25] VITALS: BP 133/64; PULSE 47
[2020-09-15] MEDS: Meclizine 12.5 MG Tab PO SCH (07:26)
--- NOTE | 2020-09-15 09:50 | PCM.DCSUM1 ---
Discharge Summary - Hospital Course Free Text/Narrative:: Carmelita was admitted to the hospital with c/o severe vertigo and nausea. Head CT and lab workup unremarkable. She was started on meclizine and Zofran. Also received IVF throughout stay. On hospital day 1, PT was consulted and performed canalith repositioning. Patient reported no improvement in symptoms. Nausea persisted so she was kept overnight additional night. On hospital day 2, patient reports near resolution of her vertigo and nausea. She reported feeling much improved. She will be discharged home with continued meclizine to use as needed. She is advised to follow up with her PCP for a recheck in 5-7 days. - Discharge Data Discharge Date: 09/15/20 Discharge Disposition: Home, Self-Care 01 Condition: Good - Referral to Home Health Primary Care Physician: PCP Unknown - Discharge Diagnosis/Problem(s) (1) Vertigo SNOMED Code(s): 849086565 ICD Code: R42 - DIZZINESS AND GIDDINESS Status: Acute Priority: High - Patient Summary/Data Consults: Consultations 09/13/20 12:32 PT Evaluation and Treatment [CONS] Routine - Patient Instructions Diet: Usual Diet as Tolerated Activity: As Tolerated, No Strenuous Activities Notify Provider of: Increased Pain, Nausea and/or Vomiting - Discharge Plan *PRESCRIPTION DRUG MONITORING PROGRAM REVIEWED*: No *COPY OF PRESCRIPTION DRUG MONITORING REPORT IN PATIENT YAMILET: No Prescriptions/Med Rec: Meclizine [Antivert] 25 mg PO TID #30 tablet Home Medications: Home Meds Meclizine [Antivert] 25 mg PO TID #30 tablet 09/15/20 [Rx] Patient Handouts: Vertigo, Benign Positional Vertigo Forms: ED Department Discharge Referrals: PCP,Unknown [Primary Care Provider] - - Discharge Summary/Plan Comment DC Time >30 min.: No - General Info Date of Service: 09/15/20 Admission Dx/Problem (Free Text: BPPV Subjective Update: Patient reports symptoms much improved this morning. She reports she is able to move about her room without significant nausea and vertigo. She has continued to use meclizine as needed. She feels ready for discharge. No additional concerns. Functional Status: Reports: Pain Controlled, Tolerating Diet, Ambulating, Urinating. Denies: New Symptoms - Review of Systems General: Reports: No Symptoms HEENT: Reports: No Symptoms Pulmonary: Reports: No Symptoms Cardiovascular: Reports: No Symptoms Gastrointestinal: Reports: Nausea (improved). Denies: Vomiting Genitourinary: Reports: No Symptoms Musculoskeletal: Reports: No Symptoms Skin: Reports: No Symptoms Neurological: Reports: Dizziness (improved) Psychiatric: Reports: No Symptoms - Patient Data Vitals - Most Recent: Last Vital Signs Temp 98.5 F 09/15/20 07:25 Pulse 47 L 09/15/20 07:25 Resp 16 09/15/20 07:25 BP 133/64 09/15/20 07:25 Pulse Ox 93 L 09/15/20 07:25 Weight - Most Recent: 190 lb Med Orders - Current: Current Medications Acetaminophen (Tylenol) 650 mg PO Q6H PRN PRN Reason: Headache Last Admin: 09/13/20 17:08 Dose: 650 mg Documented by: Enoxaparin Sodium (Lovenox) 40 mg SUBCUT Q24H [facility] Last Admin: 09/14/20 13:16 Dose: Not Given Documented by: Meclizine HCl (Antivert) 25 mg PO TID [facility] Last Admin: 09/15/20 07:26 Dose: 25 mg Documented by: Ondansetron HCl (Zofran) 4 mg IVPUSH Q6H PRN PRN Reason: Nausea Last Admin: 09/14/20 10:41 Dose: 4 mg Documented by: Promethazine HCl (Phenergan) 25 mg PO Q6H PRN PRN Reason: nausea, able to take PO Discontinued Medications Sodium Chloride (Normal Saline) 1,000 mls @ 75 mls/hr IV ASDIRECTED [facility] Last Admin: 09/14/20 06:12 Dose: 75 mls/hr Documented by: - Exam Quality Assessment: Reports: DVT Prophylaxis General: Reports: Alert, Oriented, No Acute Distress Neck: Reports: Supple Lungs: Reports: Clear to Auscultation, Normal Respiratory Effort Cardiovascular: Reports: Regular Rate, Regular Rhythm GI/Abdominal Exam: Normal Bowel Sounds, Soft, Non-Tender, No Organomegaly, No Distention, No Abnormal Bruit, No Mass, Pelvis Stable Back Exam: Reports: Normal Inspection, Full Range of Motion Extremities: Normal Inspection, Normal Range of Motion, Non-Tender, No Pedal Edema, Normal Capillary Refill Neurological: Reports: No New Focal Deficit Psy/Mental Status: Reports: Alert, Normal Affect, Normal Mood
[2020-09-15] MEDS: Acetaminophen 325 MG Tab PO PRN (09:54)
== END 2020-09-15 11:09 | disposition home or self-care (01) ==
LOC: CC.ED 10:01 → CC.MS 11:17 → CC.ED 11:26 → UNDOADMOB 11:26 → CC.MS 11:26
PROVIDERS: ADMIT Physician Assistant Medical; ATTEND Family Medicine
DX: R42 Dizziness and giddiness (principal); Z87.891 Personal history of nicotine dependence; Z20.822 Contact with and (suspected) exposure to COVID-19
CPT/HCPCS: 36415; 70450; 80048; 80053; 81001; 84484; 85025; 86140; 93005; 96374; 96376; 97112-GP; 97161-GP; 99285-25; A9270-GY; G0378; J1650; J2405; J7030; U0002

== ENCOUNTER 2021-09-07 09:15 | Emergency (ER) | payer BC, OTHER ==
[2021-09-07] MEDS: diphenhydrAMINE 50 MG/ML SDV IVPUSH ONE (09:27)
[2021-09-07] MEDS: methylPREDNISolone Sodium Succinate 125 MG/2 ML SDV IVPUSH ONE (09:29)
[2021-09-07] MEDS: Famotidine 20 MG/2 ML SDV IVPUSH ONE (09:34)
[2021-09-07 09:47] VITALS: PULSE 78
[2021-09-07 09:58] VITALS: BP 159/94
== END 2021-09-07 10:14 | disposition home or self-care (01) ==
LOC: CC.ED 09:15
DX: T78.1XXA Other adverse food reactions, not elsewhere classified, initial encounter (principal); Z88.1 Allergy status to other antibiotic agents; Z91.048 Other nonmedicinal substance allergy status
CPT/HCPCS: 96374; 96375; 99283-25; J1200; J2930; J3490